=== PATIENT | male | born 1980 | race Caucasian/White ===

== ENCOUNTER → 2022-04-19 | Outpatient (CLI) | payer BC, MEDICAID, OTHER | LOC: M WUC 13:14 | PROVIDERS: ATTEND Nurse Practitioner Family | DX: Z02.89 Encounter for other administrative examinations (principal); Z77.090 Contact with and (suspected) exposure to asbestos; Z57.9 Occupational exposure to unspecified risk factor ==

== ENCOUNTER 2023-02-15 08:55 | Emergency (ER) | payer BC, OTHER, SELFPAY ==
[~2023-02-15] VITALS: Ht 172.7 cm; Wt 79.6 kg
[2023-02-15] MEDS ORDERED: NS 500 ML IV ONE (09:20)
[2023-02-15 10:04] LABS: BASO % 0.3 % (0.0-1.0); EOS # 0.1 10^3/uL (0.0-0.5); EOS % 0.7 % (0.0-3.0); HEMATOCRIT 47.5 % (42.0-52.0); HEMOGLOBIN 16.2 g/dl (13.5-17.5); LYMPH # 2.7 10^3/uL (1.5-5.0); LYMPH % 19.3 % (24.0-44.0); MEAN CORPUSCULAR HGB CONC 34.1 g/dl (32.0-36.5); MEAN CORPUSCULAR VOLUME 90.8 fl (80.0-96.0); MONO # 0.8 10^3/uL (0.0-0.8); MONO % 5.3 % (2.0-8.0); NEUTROPHILS # 10.4 10^3/uL (1.5-8.5); PLATELET COUNT, AUTOMATED 275 10^3/uL (150-450); RED BLOOD COUNT 5.23 10^6/uL (4.30-6.10)
[2023-02-15 10:19] LABS: INR 0.91; PROTHROMBIN TIME 12.5 SECONDS (12.5-14.5)
[2023-02-15 10:20] LABS: PARTIAL THROMBOPLASTIN TIME 31.1 SECONDS (24.8-34.2)
[2023-02-15 10:24] LABS: LIPASE 34 U/L (12-53)
[2023-02-15 10:27] LABS: ALBUMIN 4.1 G/DL (3.2-5.2); ALKALINE PHOSPHATASE 109 U/L (46-116); ALT/SGPT 22 U/L (7.0-40); AST/SGOT 19 U/L (<34); BILIRUBIN,DIRECT 0.2 MG/DL (<0.4); BILIRUBIN,TOTAL 0.4 MG/DL (0.3-1.2); BLOOD UREA NITROGEN 10 MG/DL (9-23); CALCIUM LEVEL 9.3 MG/DL (8.5-10.1); CARBON DIOXIDE LEVEL 27 MMOL/L (20-31); CHLORIDE LEVEL 105 MMOL/L (98-107); CK-MB VALUE MASS < 1.0 NG/ML (<3.6); CREATININE FOR GFR 0.83 MG/DL (0.70-1.30); GLOMERULAR FILTRATION RATE > 60.0 (>60); GLUCOSE, FASTING 97 MG/DL (60-100); POTASSIUM SERUM 4.6 MMOL/L (3.5-5.1); SODIUM LEVEL 138 MMOL/L (136-145); TOTAL PROTEIN 6.6 G/DL (5.7-8.2)
[2023-02-15 10:28] LABS: CPK CREATINE PHOSPHOKINASE 106 U/L (46-171); MB/CK RELATIVE INDEX 0.94 (< OR =4)
[2023-02-15 10:30] LABS: FREE T4 1.25 NG/DL (0.89-1.76); THYROID STIMULATING HORMONE 1.195 uIU/ML (0.55-4.78)
[2023-02-15] MEDS ORDERED: ISOVUE-370 76% 100ML VIAL As Ordered ONE (10:46)
[2023-02-15 11:17] LABS: CK-MB VALUE MASS < 1.0 NG/ML (<3.6)
[2023-02-15 11:18] LABS: CPK CREATINE PHOSPHOKINASE 89 U/L (46-171); MB/CK RELATIVE INDEX 1.12 (< OR =4)
[2023-02-15 12:17] LABS: RSV AMPLIFICATION NEGATIVE (NEGATIVE)
[2023-02-15 13:12] LABS: CK-MB VALUE MASS < 1.0 NG/ML (<3.6)
[2023-02-15 13:14] LABS: CPK CREATINE PHOSPHOKINASE 90 U/L (46-171); MB/CK RELATIVE INDEX 1.11 (< OR =4)
[2023-02-15] MEDS ORDERED: ASPI81TA26 PO (13:48)
[2023-02-15 14:15] VITALS: BP 131/92
== END 2023-02-15 14:28 | disposition home or self-care (01) ==
LOC: M ED 08:55
DX: R07.9 Chest pain, unspecified (principal); I25.9 Chronic ischemic heart disease, unspecified; I25.2 Old myocardial infarction; E78.5 Hyperlipidemia, unspecified; F17.200 Nicotine dependence, unspecified, uncomplicated
CPT/HCPCS: 36415; 71045; 71275; 80048; 80076; 82550; 82553; 83690; 83880; 84439; 84443; 84484; 85025; 85610; 85730; 87631; 93005; 93041; 94760; 99285; Q9967

== ENCOUNTER → 2023-04-12 | Outpatient (CLI) | payer BC ==
[~2023-04-12] MED LIST: ASPI81TA26 PO
== END ==
LOC: M SLEEP HO 10:51
PROVIDERS: ATTEND Internal Medicine Cardiovascular Disease
DX: R06.83 Snoring (principal)